=== PATIENT | male | born 1980 | race Caucasian/White ===

== ENCOUNTER → 2016-12-25 | Day surgery (SDC) | payer OTHER ==
[~2016-12-25] MED LIST: BUPIVACAINE HCL PF 0.75% 30 ML VIAL ONE; EPINEPHrine HCL (1:1000) 30 MG/30 ML VIAL OTHER ONE; LACTATED RINGER'S 1000 ML INJ 1,000 ML ONE; LIDOCAINE 1.5%/EPINEPHrine 1:200,000 PF SOLN 30 ML AMP ONE; MIDAZOLAM HCL 2 MG/2 ML VIAL ONE; MIDAZOLAM HCL 5 MG/ML VIAL (1 ML) ONE; MORPHINE SULFATE 4 MG/ML INJ ONE; ONDANSETRON HCL 4 MG/2 ML VIAL ONE; PROPOFOL 100 MG/10 ML INJ IV ONE; Z.0.NO CURRENT MEDS; ceFAZolin 2 GM PREMIX 50 ML ONE
--- NOTE | 2016-12-26 12:37 | MP ---
cc: MERVIN JOHANSEN M.D. DATE OF SURGERY 12/25/2016 PREOPERATIVE DIAGNOSIS Left shoulder adhesive capsulitis, left shoulder SLAP labral tearing, left shoulder biceps tearing with subluxation, left shoulder impingement syndrome with bursitis. POSTOPERATIVE DIAGNOSES Left shoulder adhesive capsulitis, left shoulder SLAP labral tearing, left shoulder biceps tearing with subluxation, left shoulder impingement syndrome with bursitis. PROCEDURE Left shoulder arthroscopic extensive lysis of adhesions. Left shoulder extensive debridement of labral tear, left shoulder arthroscopic subacromial decompression, left shoulder open biceps tenodesis. SURGEON Dr. Mervin Johansen HAND COPER JOSÉ Munroe ANESTHESIA General with an anterior interscalene block. REVIEW OF SYSTEMS 50 cc COMPLICATIONS None IMPLANTS USED Arthrex JUSTIFICATION The patient is a 36-year-old male who has injured his left. He has undergone previous arthroscopic rotator cuff repair. He has had persistent symptoms of pain as well, stiffness and weakness in regards to his condition. He has failed conservative treatments. MRI confirmed the above-named findings. The patient counseled as to the risks, benefits and alternatives to the above-named proposed surgical procedure. He did wish to proceed with surgery and a written consent was obtained. The patient identified by name, taken to the operating room, placed in the supine position and general anesthesia was administered as well as two grams IV Ancef. He did receive a preoperative anterior interscalene block. The patient carefully turned to a right lateral decubitus position and a lateral arm was placed. All bony prominences and pressure points were well padded. The left upper extremity placed with an arthroscopic arm marte applied. Ten pounds of traction was gently applied. Left shoulder prepped and draped using as Isopropyl alcohol, Hibiclens solution and DuraPrep solution. After a time-out was performed, a standard anterior and posterior glenohumeral arthroscopic portal was established. The glenohumeral joint revealed extensive labral tearing. Along the anterior, superior and posterior aspects, there was evidence of high-grade biceps tearing with associated subluxation. The arthroscopic shaver was introduced in the anterior portal and extensive debridement of the labrum was performed to include the anterior 3 o'clock position, the superior 12 o'clock position and back down to the posterior 9 o'clock position. Initially, a biceps tenotomy arthroscopically was performed with an arthroscopic shaver. There was evidence of extensive labral tearing along the anterior capsule and scar formation and this was extensively debrided with an arthroscopic shaver. Attention was turned to the subacromial space where there was evidence of severe impingement and severe bursitis with the bursa completely scarred from the subacromial space and rotator cuff into the subdeltoid recess and acromion. An arthroscopic shaver was introduced from the lateral portal and extensive debridement of the bursa was performed. This debridement included subacromial decompression. Once the bursal tissue was removed, there was evidence of prior rotator cuff repair which was intact. At this point, the arthroscopic portion of this procedure was concluded. Attention was turned the anterior aspect of the shoulder where it opened and a separate longitudinal incision was made in the region of the deltopectoral interval. The deltopectoral interval was explored. The conjoined tendon was retracted in the medial direction to allow exposure of the anterior shoulder. The biceps tendon was noted be subluxed out of the bicipital groove and this was tagged with #2 FiberWire suture. A guidepin was then drilled into the intertubercular groove and an 8-mm reamer was drilled to a depth of 25 mm. #2 FiberWire suture was placed within the tendon and the tendon was then placed within the bone into a biceps tenodesis fashion. An Arthrex 7 x 23 mm Bio tenodesis screw was used for fixation. There was good purchase and fixation. The shoulder was then thoroughly irrigated with sterile saline solution. This subcutaneous layer was closed with 2-0 Vicryl sutures. The skin was closed with Dermabond. The remaining sutures were closed with 3-0 Prolene. Sterile dressing applied. The patient placed in a sling and swath immobilizer. He tolerated the procedure well with no intraoperative complications noted. Moo Bradley, physician ict sales assistant certified was present for the entire procedure to include patient positioning, and the procedure itself. The medical necessity of a physician ict sales assistant was indicated in this case due to the complexity of the procedure. He assisted with appropriate retraction of the soft tissues including the deltoid and conjoined tendon. He assisted with adequate exposure and also preparation of the tendon to include suturing, drilling and preparation of bone and also implantation of the biceps tenodesis screw for purposes of surgical repair. MD SANAM Keating/BELEN /3:50 PM /12:28 PM
== END | disposition home or self-care (01) ==
LOC: ESDC 12:38
PROVIDERS: ATTEND Orthopaedic Surgery Sports Medicine
DX: M75.02 Adhesive capsulitis of left shoulder (principal); M75.42 Impingement syndrome of left shoulder; S43.002A Unspecified subluxation of left shoulder joint, initial encounter; S43.432A Superior glenoid labrum lesion of left shoulder, initial encounter
CPT/HCPCS: 01630; 01716; 01991; 23430; 29823; 29826; 64417; C1713; J0171; J0690; J2250; J2270; J2405; J7120